=== PATIENT | female | born 1995 | race Caucasian/White ===

== ENCOUNTER 2023-12-23 12:47 | Inpatient (IN) | payer BC ==
[~2023-12-23] VITALS: Ht 172.7 cm; Wt 99.1 kg
[2023-12-24] VITALS (26 sets, daily range): BP systolic 13–141; BP diastolic 58–89; PULSE 56–127; TEMP 97.4–98.3
--- NOTE | 2023-12-24 05:45 | NUR ---
Pt abmulatory to 209 with spouse for scheduled . Clean gown on. EFM and TOCO explained and applied. Pt denies contractions, vaginal bleeding or leaking of fluids. Reports good movement. Plan of care explained. 0550: IV started and labs obtained via IV site. LR bolus infusing without difficulty
[2023-12-24] MEDS ORDERED: LR 1,000 ML IV SCH ×2 (06:00)
[2023-12-24] MEDS ORDERED: Ondansetron 4 MG/2 ML VIAL IV SCH (06:00)
[2023-12-24] MEDS ORDERED: Measles/Mumps/Rubella Virus Vaccine Live w Diluent 0.5 ML VIAL SQ SCH (06:30)
[2023-12-24] MEDS ORDERED: LR 1,000 ML IV PRN (06:30)
[2023-12-24] MEDS ORDERED: Magnes Hydrox (MOM) 80 MG/ML 30 ML CUP PO PRN (06:30)
[2023-12-24] MEDS ORDERED: Loratadine 10 MG TAB PO PRN (06:30)
[2023-12-24] MEDS ORDERED: Acetaminophen 500 MG TAB PO PRN (06:30)
[2023-12-24] MEDS ORDERED: oxyCODONE 5 MG TAB PO PRN (06:30)
[2023-12-24] MEDS ORDERED: Ondansetron 4 MG/2 ML VIAL IV PRN (06:30)
[2023-12-24] MEDS ORDERED: Naloxone 0.4 MG/ML VIAL IV PRN (06:30)
[2023-12-24] MEDS ORDERED: PRENATAL TABLET PO (06:32)
[2023-12-24] MEDS ORDERED: NATURAL IRON65 MG (06:33)
[2023-12-24] MEDS ORDERED: Oxytocin 10 UNITS/ML VIAL ONE (07:00)
[2023-12-24] MEDS ORDERED: Phenylephrine 10 MG/ML VIAL ONE (07:00)
[2023-12-24] MEDS ORDERED: ePHEDrine 50 MG/ML VIAL ONE (07:00)
[2023-12-24 07:01] LABS: BASO % 0.2 % (0.0-2.0); EOS # 0.1 K/mm3 (0.0-0.7); EOS % 0.5 % (0.0-4.0); GRAN # 6.2 K/mm3 (1.4-6.5); LYMPH # 2.5 K/mm3 (1.2-3.4); MEAN CELL VOLUME 97 fl (80.0-100.0); MEAN CORPUSCULAR HEMOGLOBIN 32 pg (27-31); MEAN CORPUSCULAR HGB CONC 34 g/dl (33.0-37.0); MEAN PLATELET VOLUME 12.2 fl (7.4-10.4); MONO # 0.8 K/mm3 (0.1-0.6); MONO % 7.9 % (1.7-9.3); PLATELET COUNT 210 K/mm3 (130-400); RED BLOOD COUNT 3.39 M/mm3 (4.10-5.30); REDCELL DISTRIBUTION WIDTH-CV 12.7 % (11.5-14.5)
[2023-12-24] MEDS ORDERED: NS 10 ML IV ONE ×2 (07:02→07:58)
[2023-12-24 07:05] LABS: HEMATOCRIT 32.8 % (37.0-47.0)
[2023-12-24] MEDS ORDERED: Rocuronium 50 MG/5 ML Multi-Dose VIAL ONE (07:05)
[2023-12-24] MEDS ORDERED: Ketorolac 30 MG/ML VIAL ONE (07:43)
[2023-12-24] MEDS ORDERED: dexAMETHasone 10 MG/ML VIAL ONE (07:58)
[2023-12-24] MEDS ORDERED: Sennosides/Docusate 8.6-50 MG TAB PO SCH (08:00)
[2023-12-24] MEDS ORDERED: PERCOCET 325 MG1 TA2 PO (09:30)
[2023-12-24] MEDS ORDERED: MOTRIN 800800 MG/TAB PO (09:30)
[2023-12-24] MEDS ORDERED: Ibuprofen 800 MG TAB PO SCH (12:30)
--- NOTE | 2023-12-24 12:30 | NUR ---
Data: Patient accepted spiritual care visit offered during [employer] rounds. Patient and family welcomed Stacie Pineda to their family. Assessment: Appreciative. Plan of Care: [employer] Fire[employer] offered congratulations, baby blessing, and prayer. Chaplains will remain available as needed/requested while Patient is admitted to this hospital.
[2023-12-24] MEDS ORDERED: traZODone 50 MG TAB PO PRN (21:00)
[2023-12-25 03:50] VITALS: BP 121/67; PULSE 115; TEMP 98.1
[2023-12-25 07:45] VITALS: BP 116/73; PULSE 93; TEMP 98
[2023-12-25 16:45] VITALS: BP 109/75; PULSE 103
[2023-12-25 19:20] VITALS: BP 130/72; PULSE 98; TEMP 97.5
[2023-12-26 07:20] VITALS: BP 112/72; PULSE 94; TEMP 98.9
== END 2023-12-26 13:19 | disposition home or self-care (01) | DRG 788 ==
LOC: OB 12-24 05:27
PROVIDERS: ADMIT Obstetrics & Gynecology
PROC: 10D00Z1 Extraction of Products of Conception, Low, Open Approach (ICD-10-PCS; principal; 2023-12-24)
DX: O32.1XX0 Maternal care for breech presentation, not applicable or unspecified (principal); Z3A.39 39 weeks gestation of pregnancy; Z37.0 Single live birth; O36.63X0 Maternal care for excessive fetal growth, third trimester, not applicable or unspecified; O99.214 Obesity complicating childbirth; O75.89 Other specified complications of labor and delivery
CPT/HCPCS: J0665; J0690; J1100; J1885; J2371; J2405; J2590; J2765; J7120